=== PATIENT | male | born 1950 | race Caucasian/White ===

== ENCOUNTER → 2016-10-20 | Outpatient (CLI) | payer OTHER ==
[~2016-10-20] MED LIST: ASPI81TA28 PO; CALC1TAB27 PO; FINA5TAB PO; IRON PO; LEVO50TA PO; MULT-506 PO; OXYM1TAB26 PO; PANT40TA PO; POLYPOW; TAMS0.4C38 PO; TAPE50TA PO; VITACAP26 PO; VITAMIN B12 PO; VITAMIN D3 PO
[2016-10-20 13:19] VITALS: BP 114/66; PULSE 80; TEMP 36.8; O2SAT 97
--- NOTE | 2016-10-20 13:51 | Radiation Oncology Follow-Up ---
Radiation Oncology Follow-Up Date of Visit Oct 20, 2016. Reason For Visit One-month follow-up Radiation Completion Date Gynecomastia 09/15/16 Diagnosis (1) Gynecomastia Status: Acute Location: bilateral breasts Stage: Not Applicable Permanent Comment: Use of finasteride for approximately 5 years for BPH Development of breast tenderness and enlargement Referral for evaluation and treatment of gynecomastia Status post completion of radiation therapy 09/25/2016. He received 1650 cGy to each breast. Last Edited By: Licha Sosa on Sep 20, 2016 16:29 History of Present Illness Mr. Sun is a 66-year-old male who has a history of benign prostatic hypertrophy. He has been on 5 mg of finasteride for at least 5 years. He has had symptoms of incomplete bladder emptying and has also been on Flomax twice a day. He has noted some improvement in his urinary symptoms. However recently the patient has noted tenderness of his nipples with firmness underneath the nipples. He is noted this to Dr. Conteh at the time of his most recent follow- up visit on August 11 and since that time has noted some mild progression of his symptoms. Dr. Conteh asked if we would see the patient to evaluate treatment with local radiation. Interim History He has had discomfort of the nipple area over the past month. The skin has been irritated. He denied any nipple drainage. There was some dryness and peeling of skin. He stated that he has discussed taking the finasteride with Dr. Conteh. The decision was to continue on with the medication. He rates the discomfort he has at a level III. He also states he has chronic pain of his joints. He does take medication regularly for pain. Allergies Coded Allergies: Iodinated Diagnostic Agents (Verified Allergy, Unknown, Unknown, 05/22/15) Source, [facility]. Home Medications Scheduled Aspirin (Aspirin Ec), 81 MG PO QAM Ozsamdp-Hypnzxece-Qwex (Calcium Magnesium & Zinc), 1 TAB PO QAM Finasteride (Proscar), 5 MG PO QAM Levothyroxine Sodium (Synthroid), 50 MCG PO QAM Multivitamin (Multivitamin), 1 TABLET PO QAM Oxymorphone Hcl (Opana Er (Crush Resistant), 30 MG PO BID Pantoprazole Sodium (Protonix), 40 MG PO QAM Tamsulosin Hcl (Flomax), 0.4 MG PO BID Vitamins C & E (Vitamin C), 1 TAB PO QAM [Iron], 1 TAB PO QAM [Vitamin B12], 1 TAB PO QAM [Vitamin D3], 1 TAB PO QAM Scheduled PRN Tapentadol Hcl (Nucynta), 50 MG PO TID PRN for RN Miscellaneous Medications Polyethylene Glycol 1000 (Polyethylene Glycol 1000) Review of Systems Gastrointestinal: Symptoms: WNL Oral: Symptoms: No Problems Respiratory: Symptoms: WNL Urinary: Comments: Sometimes has urgency and able to go longer than 2hrs betw'n voids ; Skin: Symptoms: Faint Erythema Other Skin Symptoms: around areola of each breast;Both nipples red/sensitive ; Physical Exam Vital Signs Date Time Temp Pulse Resp B/P (MAP) Pulse Ox O2 Delivery O2 Flow Rate FiO2 10/20/16 13:19 36.8 80 12 114/66 97 General Appearance: no apparent distress ENT: hearing grossly normal Respiratory/Chest: lungs clear, no respiratory distress, no accessory muscle use Breast: Breast examination reveals very slight erythema of the nipples and surrounding breast tissue. There is mild tenderness to palpation. The firmness is rated her on the left than on the right. There is no wet or dry desquamation. There are no skin retractions or edema. Assessment & Plan Plan: Continue follow-up with Dr. Conteh. We reviewed again today the reason for treatment. This was to decrease and stop the continued enlargement of the breasts. Once the radiation effect has resolved it is to treat the discomfort in the breasts. He will continue to follow with Dr. Conteh. The previously discussed the medication. In the decision was that he was going to continue on the finasteride. A follow-up appointment with our office was not given. He may call if he has any questions or concerns. Total Time In Follow-Up I spent 15 minutes speaking to the patient and performing examination. I spent 15 minutes reviewing information and completing this note. Copy To Garrison Conteh MD, Urology; Tere Garcia D.O.
== END | disposition home or self-care (01) ==
LOC: C.ONC 13:10
PROVIDERS: ATTEND Physician Assistant Medical
DX: Z08 Encounter for follow-up examination after completed treatment for malignant neoplasm (principal); Z92.3 Personal history of irradiation; N62 Hypertrophy of breast